=== PATIENT | female | born 1970 | race Caucasian/White ===

== ENCOUNTER 2020-01-16 01:03 | Outpatient (CLI) | payer BC, SELFPAY ==
[2020-01-16 10:57] LABS: HCT 40.6 % (36.0-46.0); HGB 13.3 g/dL (11.2-15.7); MCH 28.2 pg (27.0-33.0); MCHC 32.8 % (32.0-36.0); MCV 86.2 fL (80-95); MPV 9.6 fL (8.0-11.0); Platelet Count 195 10^3/uL (130-400); RBC 4.71 10^6/uL (3.93-5.22); RDW 11.9 % (11.7-14.6); RDW-SD 37.4 fL; WBC 4.19 10^3/uL (4.4-10.8)
== END 2020-01-16 01:23 ==
PROVIDERS: PCP Family Medicine; Visit Provider Obstetrics & Gynecology
DX: Z01.818 Encounter for other preprocedural examination (principal)
CPT/HCPCS: 36415; 85027; 86850; 86900; 86901

== ENCOUNTER 2020-01-16 01:03 | Outpatient (CLI) | payer BC, SELFPAY ==
[2020-01-18 09:54] LABS: SARS-CoV-2 RNA Not Detected (NotDetected); SARS-CoV-2 RNA Source Nasal/Nares
== END 2020-01-16 01:23 ==
PROVIDERS: PCP Family Medicine; Visit Provider Obstetrics & Gynecology
DX: Z11.59 Encounter for screening for other viral diseases (principal); Z01.818 Encounter for other preprocedural examination
CPT/HCPCS: U0003

== ENCOUNTER 2020-01-21 11:32 | Day surgery (SDC) | payer BC, SELFPAY ==
[2020-01-21] VITALS (23 sets, daily range): BP systolic 96–111; BP diastolic 36–66; PULSE 38–58; RESP 8–19; TEMP 36.1–36.6; O2SAT 94–100
[2020-01-21] MEDS: Lactated Ringers 1,000 ML 125 ML IV ×2 (12:52→17:07)
[2020-01-21] MEDS: Scopolamine 1 MG/3 DAYS PATCH TD (13:37)
--- NOTE | 2020-01-21 15:12 | OVAR_PTH ---
PATIENT: Marietta Vick LOC: [facility] U#:[id number] AGE/SX: 49/F ROOM: RE01/21/[address]: Marylin Bentley DO : 1970 BED: DIS: 01/21/2020 SPEC #: [id number] RECD: 01/21/20 17:50 STATUS: ENA REQ #: [id number] KM: 01/21/20 15:[address]: Marylin Bentley DEPT: Surgical Specimen RECD BY: Lisa Nicole ENTERED: 01/21/20 17:51 SP TYPE: LESLIE BYRNE DR: Clyde Loera Tissues: 1 - VAGINAL BIOPSY 2 - OVARY NOT TUMOR W OR W/O TUBES Procedures: GROSS AND MICRO LEVEL 5 Comments: [id number]
--- NOTE | 2020-01-21 15:50 | PAPNONF_PTH ---
PATIENT: Marietta Vick LOC: [facility] U#:[id number] AGE/SX: 49/F ROOM: RE01/21/[address]: Marylin Bentley DO : 1970 BED: DIS: 01/21/2020 SPEC #: [id number] RECD: 01/21/20 18:06 STATUS: ENA REQ #: [id number] KM: 01/21/20 15:[address]: Marylin Bentley DEPT: [facility] Cytology RECD BY: Lisa Nicole ENTERED: 01/21/20 18:07 SP TYPE: CRISTINA BYRNE DR: Clyde Loera Tissues: 1 - BODY FLUID CYTO(NOT S/U/N/EM)[facility] Procedures: BODY FLUID CYTO(NOT SPU/UR/NIP/ENDOM)[facility] Comments: [id number] (TOTAL VOLUME = 50 ml's, SENT FRESH)
--- NOTE | 2020-01-21 16:20 | ROE_ITS ---
Date of service: 01/21/20 Time of Service: 16:20 Operative Note Operative Note DATE OF PROCEDURE: 01/21/20 PRE-OP DIAGNOSIS: 10 cm ovarian cyst POST-OP DIAGNOSIS: same PROCEDURE: Excision of vaginal lesion. Operative laparoscopy, left oophorectomy SURGEON: Marylin Bentley ASSISTING SURGEON: Dez Maldonado ANESTHESIA: GETA ESTIMATED BLOOD LOSS: 10 PATHOLOGY: other (Ovarian fluid for cytology, vaginal lesion, left ovary) COMPLICATIONS: None Patient was transported to: PACU Patient's condition: stable Indications: Symptomatic 10 cm ovarian cyst Findings: 2 x 3 cm intravaginal lesion, 10 cm simple ovarian cyst, left ovary. Procedure Description: Patient is a 49-year-old female with a known history of left ovarian cyst. This is on ultrasound was approximately 10 cm greatest dimension which was simple. There were no excoriations or internal septations. Patient is symptomatic from this with pelvic pressure and discomfort. The risk benefits and alternatives of operative laparoscopy were explained to the patient full informed consent was obtained. She was taken the operating suite with an IV running. She had previous laboratory studies and Covid testing done. She is placed in dorsal supine position and endotracheal intubation performed from the ministration of general anesthesia with ease. At this point she was prepped and draped in usual sterile fashion in yellowfin stirrups in the modified dorsolithotomy position. Bladder was drained for approximately 100 cc of clear yellow urine. Weighted speculum was placed into the posterior vaginal vault. On inspection of the vaginal vault there was noted to be a 2 x 3 cm polypoid pedunculated mass posterior to the cervix and on the posterior vaginal wall. This was grasped with a ring forcep and the base suture ligated for removal of this vaginal lesion. At this point a single-tooth tenaculum was used to grasp the anterior lip of the cervix and cervical os dilated to the point that a [place] uterine manipulator could be placed within. Speculum was then removed and attention was turned to the abdomen. At this point a small infraumbilical skin incision was made horizontally after infiltration of half percent Marcaine with epinephrine. Varies needle was used to directly inserted into the abdomen after creation of a 10 mm incision. Pneumoperitoneum was created to a maximum pressure of 15 mmHg of CO2 gas. At this point a bladeless Visiport 10 mm sleeve and trocar were directly inserted into the abdomen. This allowed visualization of the entire abdomen which was found to be atraumatic. A second and third right and left lower quadrant trocar sites were made after infiltration of Marcaine and under direct visualization. At this point the uterus was elevated and the abdomen and pelvis were inspected. Right lobe ovary and tube were found to be normal. Left ovary was markedly dilated approximately 10 cm and appeared fluid-filled and cystic in nature. At this point the left ovary was elevated out of the pelvis and the utero-ovarian and infundibulopelvic ligaments were cautery transected with the LigaSure device. This allowed the left ovary to be free within the abdomen. The infraumbilical port was converted to a 15 mm site and an Endopouch was placed within. The ovary was swept into the Endopouch and elevated to the anterior abdominal wall. Under direct visualization the ovary was punctured and fluid aspirated to be sent for cytology. The remainder of the ovary was removed in toto in the bag. At this point the Endopouch was removed. Fascial incision the umbilicus was closed using 0 Vicryl suture in a simple interrupted fashion. Remainder of the trocar sites were removed under direct visualization and found to be hemostatic. Skin edges were reapproximated with 4-0 Vicryl suture and Steri-Strips. Band-Aids were then placed. At this point to the [employer] manipulator was removed and her Estring for vaginal estrogen was replaced into the vaginal vault. She was returned to the dorsal supine position and woke from anesthesia with ease. She is taken to recovery room in stable condition. Findings were as above. EBL: 10 mm Complications: None apparent Specimen: 1 vaginal lesion 2 ovarian fluid for cytology 3 left ovary
[2020-01-21] MEDS: HYDROmorphone 2 MG/ML VIAL IVP ×2 (16:50→17:15)
== END 2020-01-21 19:38 | disposition home or self-care (01) ==
LOC: SUR 17:01 → ICU 18:11 → SUR 02-25 08:39
PROVIDERS: PCP Family Medicine; Visit Provider Obstetrics & Gynecology
PROC: 0UT14ZZ Resection of Left Ovary, Percutaneous Endoscopic Approach (ICD-10-PCS; CPT 58661; principal; 2020-01-21 13:45)
DX: D27.1 Benign neoplasm of left ovary (principal); N84.2 Polyp of vagina; R10.2 Pelvic and perineal pain; Z79.890 Hormone replacement therapy; N76.1 Subacute and chronic vaginitis; Z98.890 Other specified postprocedural states
CPT/HCPCS: 58661; 49322; 57100; 88305; 88104; 88307; J1100; J1885; J2001; J2250; J2405; J2704; J3475

== ENCOUNTER 2022-03-22 01:25 | Outpatient (CLI) | payer BC, SELFPAY ==
--- NOTE | 2022-03-22 07:30 | DI.MAMMO_ITS ---
Exam(s) MAMMO SCREENING EXAM: MAMMO SCREENING CLINICAL HISTORY: screening. TECHNIQUE: Bilateral full field digital CC and MLO mammographic images were obtained with 3D tomosyn thesis and utilizing computer aided detection (CAD). COMPARISON: Prior outside mammograms were reviewed. FINDINGS: Fibroglandular tissue pattern is again noted be dense, this somewhat decreasing the sensitivity of th e mammogram for finding hidden underlying lesions. There are no new obvious spiculated masses nor malignant appearing microcalcification groups. There is no significant architectural distortion nor skin thickening-retraction. IMPRESSION: Dense bilateral fibroglandular tissue. No obvious radiographic evidence of malignancy and no signifi cant change compared to prior outside mammograms. BI-RADS Category 1 - Negative Breast Density - Category C - Heterogeneously dense Breast density Category C or D implies that the patient has dense breast tissue. Dense breast tissue can make it harder to find cancer on a mammogram. Dense breast tissue is also associated with an incr eased risk of breast cancer. This information about the result of the mammogram report was provided to the patient to raise their awareness. Use this report when you speak with the patient about their risks for breast cancer, which includes their family history. At that time, you may recommend additional screening tests (Ultrasoun d or MRI) as these tests may add significant information. A negative radiographic report should not delay biopsy if a dominant or clinically suspicious mass is present. Up to ten percent of cancers are not identified on mammography. A negative report may reinforce clinical impression. Adenosis and dense breasts may obscure an underlying neoplasm. False positive reports average 6 to 10%. Patient will receive a letter notifying them of these results.
== END 2022-03-22 01:45 ==
LOC: DI 01:26
PROVIDERS: PCP Nurse Practitioner; Visit Provider Obstetrics & Gynecology
DX: Z12.31 Encounter for screening mammogram for malignant neoplasm of breast (principal); R92.8 Other abnormal and inconclusive findings on diagnostic imaging of breast
CPT/HCPCS: 77063; 77067

== ENCOUNTER 2022-10-13 15:17 | Outpatient (REF) | payer BC, SELFPAY | END 2022-10-13 15:18 | disposition home or self-care (01) | LOC: LBN 15:17 | PROVIDERS: PCP Nurse Practitioner; Visit Provider Advanced Practice Midwife | DX: N89.8 Other specified noninflammatory disorders of vagina (principal); R10.2 Pelvic and perineal pain | CPT/HCPCS: 87480; 87510; 87660 ==

== ENCOUNTER 2023-01-23 16:10 | Outpatient (REF) | payer BC, SELFPAY | END 2023-01-23 16:11 | disposition home or self-care (01) | LOC: LBN 16:10 | PROVIDERS: PCP Nurse Practitioner; Visit Provider Advanced Practice Midwife | DX: N94.9 Unspecified condition associated with female genital organs and menstrual cycle (principal) | CPT/HCPCS: 87480; 87510; 87660 ==

== ENCOUNTER 2023-10-11 15:01 | Outpatient (RCR) | payer BC, SELFPAY ==
--- NOTE | 2023-10-11 08:00 | HOLTER_ITS ---
APPROVED REPORT Conclusion This is a 48-hour Holter monitor Rhythm throughout was sinus with an average heart rate of 82. Minimum was 44, maximum 105 A total of 2 premature ventricular contractions occurred There were very rare premature beats, a total of 20 in 48 hours There was no atrial fibrillation, no high-grade AV block, no pauses greater than 3 seconds Symptoms were reported which did not reliably correspond to any dysrhythmia
== END 2023-11-03 23:59 | disposition home or self-care (01) ==
LOC: CARDOPNVT 15:01
PROVIDERS: PCP Nurse Practitioner; Visit Provider Internal Medicine Cardiovascular Disease
DX: R07.9 Chest pain, unspecified (principal)
CPT/HCPCS: 93225; 93226

== ENCOUNTER 2024-02-26 12:05 | Outpatient (REF) | payer BC, SELFPAY | END 2024-02-26 12:06 | disposition home or self-care (01) | LOC: LBN 12:05 | PROVIDERS: PCP Nurse Practitioner; Visit Provider Obstetrics & Gynecology | DX: R10.2 Pelvic and perineal pain (principal); R10.9 Unspecified abdominal pain | CPT/HCPCS: 87086 ==